=== PATIENT | male | born 1940 | race Caucasian/White ===

== ENCOUNTER 2016-07-23 12:32 | Inpatient (IN) | payer MEDICARE ==
--- NOTE | ~2016-07-23 | HP ---
Unit #: [id number] #: [id number] Patient: DALE PRINCE [id number] [address] [address] [id number] MR#: [id number] NAME: DALE PRINCE. ROOM: Age: 76 Sex: M Admission Date: 07/23/2016 : 1940 Attending Physician: Gosia Longo M.D. Primary Care Physician: No Primary Care Physician HISTORY AND PHYSICAL ADDENDUM The patient is on metformin. He is not sure of the dose. He is also on an antihypertensive medication. Home medications will need to be reviewed and verified. Dictated by Barbara Waggoner/juan c TD: 07/23/2016 16:22 JOB #: [id number] HISTORY AND PHYSICAL X Hillary Frederick MD X HISTORY AND PHYSICAL
--- NOTE | ~2016-07-23 | DS ---
Unit #: [id number] #: [id number] Patient: DALE MCCOLLUM [id number] [address] [place], [place] [address] [id number] MR#: [id number] NAME: DALE MCCOLLUM. ROOM: 240 Age: 76 Sex: M Admission Date: 07/23/2016 : 1940 Discharge Date: 07/26/2016 Attending Physician: Gretchen Schreiber M.D. Primary Care Physician: Dr. Benito Quick DISCHARGE SUMMARY PRINCIPAL DIAGNOSES 1. Sepsis secondary to left lower extremity cellulitis. 2. Onychomycosis. 3. Diabetes mellitus type 2, non-insulin requiring and uncontrolled, with hemoglobin A1C of 8.5. 4. Chronic kidney disease stage 3, with baseline creatinine of approximately 1.3. 5. Hypertension. 6. Hyperlipidemia. 7. Moderate protein malnutrition. 8. Obesity. 9. Venous stasis. CONSULTANTS None. DIAGNOSTIC STUDIES IMAGING: Left lower extremity venous Doppler, which was negative for DVT. CLINICAL HISTORY AND HOSPITAL COURSE Mr. Mccollum is a 76-year-old male who presented to the emergency department with swelling and redness of the left lower extremity. Please refer to H and P for further details. Examination in the emergency department was consistent with cellulitis. The patient had an associated leukocytosis with a white blood cell count of 13.2 and was also found to be tachycardic upon presentation. Blood sugar was also elevated at 270. The patient was subsequently admitted. The patient was placed on empiric Zosyn and vancomycin in regard to his cellulitis. The patient remained afebrile throughout the hospitalization, and white blood cell count on day of discharge had normalized to 8.8. Cellulitis itself was also significantly improved. Physical examination revealed some significant onychomycosis and fungal infection between the toes. Thus, the patient was also placed on clotrimazole cream. I suspect the fungal infection of the toes led subsequently to the cellulitis. We are going to complete empiric antibiotic therapy as an outpatient. This will cover MSSA, MRSA and Pseudomonas, given causative organism was not identified. The patient, as noted above, had significant hyperglycemia, and his hemoglobin A1C confirms that sugars were uncontrolled at home. He did receive diabetic education at home, but I will note he told the associate professor of archaeology, "I think I am doing everything right." I have added Januvia to his home regimen, and this can be monitored by the patient's primary care physician Unit #: [id number] #: [id number] Patient: DALE MCCOLLUM upon followup in a couple months. However, I suspect, perhaps, he needs some underlying insulin therapy, but this is to be decided by his primary care provider. The patient's other chronic conditions remained stable. He will be discharged home on antibiotics today. DISCHARGE CONDITION Stable. DISCHARGE STATUS Discharge to home. DISCHARGE MEDICATIONS 1. Metformin 1,000 mg b.i.d. 2. Januvia 100 mg daily with 1 refill given. 3. Spectazole 1% cream applied topically b.i.d. between all toes for a total of 7 days. 4. Lasix 40 mg daily. 5. Simvastatin 40 mg at bedtime. 6. Lisinopril 10 mg at bedtime. 7. Preston 5/325 mg 1 tablet p.o. q.4 hours p.r.n. pain (number given 20). 8. Glipizide 10 mg p.o. b.i.d. 9. Aspirin 81 mg p.o. daily. 10. Levaquin 750 mg p.o. daily for another 11 days. 11. Bactrim DS 1 tablet p.o. b.i.d. for another 11 days. DISCHARGE INSTRUCTIONS Patient was instructed to follow a heart healthy, constant carb diet. I instructed him to initiate Accu-Cheks at least twice daily at home, one fasting and one 2 hours postprandial, so we can monitor the addition of Januvia and how it affects sugars. He can increase his activity as tolerated. FOLLOW-UP Patient will follow up with his primary care physician, Dr. Benito Quick, upon return to [place] and reevaluate glycemic control at that time. NOTE: Time spent on discharge - 33 minutes. Dictated by... Gretchen Schreiber M.D. MICKY/juan c TD: 07/27/2016 10:45 JOB #: [id number] Unit #: [id number] #: [id number] Patient: DALE MCCOLLUM DISCHARGE SUMMARY X Gretchen Schreiber MD DISCHARGE SUMMARY
--- NOTE | ~2016-07-23 | HP ---
Unit #: [id number] #: [id number] Patient: DALE PRINCE [id number] [facility] [address] [place]. [place], [place] [address] [id number] MR#: [id number] NAME: DALE PRINCE. ROOM: Age: 76 Sex: M Admission Date: 07/23/2016 : 1940 Attending Physician: Gosia Longo M.D. Referring Physician: Self Referral-Refer Use Only Primary Care Physician: No Primary Care Physician HISTORY AND PHYSICAL CHIEF COMPLAINT Left leg swelling, pain. HISTORY OF PRESENT ILLNESS The patient is a 76-year-old male with past medical history of diabetes, hypertension, CHF, who presented to the emergency department for evaluation of the above. The patient states that he has had a four to five day history of increasing redness, swelling and pain involving the left leg. He has had chills and undocumented fever. He states that the pain is similar to when he had cellulitis in the past about two years ago. In the emergency department blood sugar was noted to be 270, white blood cell count 13.2. He was given vancomycin. He is being admitted to [facility] for evaluation and further treatment. PAST MEDICAL HISTORY 1. CHF with unknown ejection fraction. 2. Hypertension. 3. Diabetes. PAST SURGICAL HISTORY 1. Wrist surgery. 2. Hernia repair. 3. Cardiac catheterization, normal per the patient (no records). That was apparently done in [place]. SOCIAL HISTORY The patient lives with his . He lives in [place]. He is here visiting. There is no tobacco or alcohol use. FAMILY HISTORY Family history is notable for his mother having diabetes. ALLERGIES No known allergies. HOME MEDICATIONS There is no medication list on the chart. Home medications will need to be reviewed and verified. REVIEW OF SYSTEMS Unit #: [id number] #: [id number] Patient: DALE PRINCE 10-point review of systems is negative except as indicated in the HPI. The patient does not check his blood sugars at home. DIAGNOSTIC STUDIES LABORATORY: Complete blood count notable for white blood cell count of 13.2. Comprehensive metabolic panel notable for sodium of 129, that corrects to 132 when glucose of 270 is accounted for, BUN and creatinine 35 and 1.2 respectively, albumin is 3.2. PHYSICAL EXAMINATION VITAL SIGNS: Temperature is 97.4. Pulse 97. Respirations 16. Blood pressure 151/82. Oxygen saturation is 96% on room air. GENERAL: The patient is a male who is awake and alert, in no acute distress. HEENT: The head is atraumatic. Mucous membranes are moist. NECK: Neck is supple. Trachea is midline. CARDIOVASCULAR: Regular rate and rhythm. LUNGS: Lungs are clear to auscultation bilaterally with no increased work of breathing. ABDOMEN: Abdomen is soft, nontender, with bowel sounds present in all four quadrants. EXTREMITIES: The left lower extremity just distal to the knee and involving the dorsal aspect of the foot demonstrates erythema, warmth and tenderness to palpation that is near circumferential. He does have some chronic appearing wounds on the posterior aspect of the left leg as well as the anterolateral aspect of the right lower extremity, 2+ dorsalis pedis pulses are present. NEUROLOGIC: The patient is awake and alert. He follows commands. PSYCHIATRIC: Mood and affect are normal. The patient is cooperative. SKIN: Skin of examined areas demonstrates the previously described abnormalities. ASSESSMENT The patient is a 76-year-old male with: 1. Left lower extremity cellulitis. He received vancomycin in the emergency department. 2. Sepsis. 3. Uncontrolled diabetes. 4. Hypertension. 5. Congestive heart failure with unknown ejection fraction. 6. Chronic leg wounds. PLAN 1. Admit to med/surg. 2. Healthy heart consistent carb diet. 3. Normal saline at 75 mL an hour. 4. Blood cultures x2. 5. Left lower extremity venous Doppler to rule out DVT. 6. Vancomycin IV and Zosyn IV pending further workup. 7. STAT lactic acid. 8. Sepsis protocol. 9. Hemoglobin A1C. 10. Low dose sliding scale insulin with Accu-Cheks. 11. P.r.n. morphine. 12. P.r.n. Zofran. 13. P.r.n. Tylenol. 14. Check urinalysis. 15. Wound care consult regarding chronic leg wounds. The patient denies Unit #: [id number] #: [id number] Patient: DALE PRINCE ever being told he had MRSA. 16. Repeat labs in the morning. 17. Additional workup and consultants based on above. Dictated by Hillary Frederick M.D. DAVID/cuong TD: 07/23/2016 16:09 JOB #: [id number] HISTORY AND PHYSICAL X Hillary Frederick MD HISTORY AND PHYSICAL
--- NOTE | ~2016-07-23 | US85 ---
[facility] A Service [facility] RADIOLOGY TEXT RESULTS PATIENT: DALE PRINCE LOCATION: [facility] : 41 UNIT #: [id number] AGE: [address]: Hillary Frederick MD SEX: M ORDER DR: [id number] [place], [place] [address] [id number] MR#: [id number] Acc #: [id number] NAME: DALE PRINCE. : 1940 SEX: M STUDY DATE/TIME: 07/23/2016 16:25 UNIT: [facility] ROOM: 240 STUDY DESCRIPTION: LE Veins Unilat or Ltd Stdy Attending Physician: Hillary Frederick M.D. Ordering Physician: Hillary Frederick M.D. MEDICAL IMAGING REPORT This report is preliminary unless electronic signature is present EXAM Left leg vein Doppler 07/23 INDICATIONS Left leg swelling and pain and swelling for the last 4 days. No trauma. TECHNIQUE Venous ultrasound examination of the left lower extremity was performed using grayscale, spectral Doppler and color flow Doppler imaging. FINDINGS The examination is negative. There is no evidence of left lower extremity deep venous thrombus from the groin to the lower calf. Visualized greater saphenous vein is also patent. IMPRESSION Negative examination. No evidence of left lower extremity deep venous thrombosis. Dictated by... Darron Bañuelos Jr., M.D. THIS IS AN ELECTRONICALLY VERIFIED REPORT Darron Bañuelos Jr., M.D. at 07/24/2016 6:32 AM JOSEFK/maría TD: 07/23/2016 22:18 JOB #: [id number] MEDICAL IMAGING REPORT [facility] RADIOLOGY TEXT RESULTS PATIENT: DALE PRINCE LOCATION: [facility] : 41 UNIT #: [id number] AGE: [address]: Hillary Frederick MD SEX: M ORDER DR: COPY
--- NOTE | ~2016-07-23 | A ---
[facility] Nutrition Therapy DATE: 07/25/16 Patient: DALE PRINCE Physician: ALEXSANDRA Address: [address] Room/Bed: [address] [place] [address], Zip: [place] [address] Admit Date: 07/23/16 Date of : [birth year] Height: 5 3 Weight: 211 96 NUTRITIONAL ASSESSMENT: REASON: CONSULT RE: DIET EDUCATION PT IS 76 Y.O. MALE ADMITTED FOR (L) LEG SWELLING HT: 5'3", WT: 200# (91 KG), BMI: 35.4 RD PROVIDED WRITTEN AND VERBAL CC DIET EDUCATION. RD PROVIDED LIST OF FOODS TO AVOID/LIMIT AND FOODS TO EAT MORE OFTEN. RD ALSO EMPHASIZED CONSISTENT MEAL SCHEDULE AND BALANCED MEALS WELL LIMIT SUGAR-SWEETENED BEVERAGES. PT REPORTS WATCHING THE "WHITE" STUFF (HIS MD ADVISED HIM). PT REPORTS CONSUMING 3 MEALS DAILY + UNSWEET ICED TEA AND MILK DAILY. PT STATES "I REALLY DON'T FEEL LIKE I NEED TO WORK ON ANYTHING". PT VERBALIZED UNDERSTANDING OF THE TOPIC/REPORTED NO DIET QUESTIONS AT THIS TIME. RD TO REMAIN AVAILABLE. RECOMMENDATIONS: 1. ENCOURAGE COMPLIANCE OF CURRENT DIET ORDER=CC+HH RD WILL F/U PER PROTOCOL Respectfully, ADI ANDERSON MS, RD, LD [facility] cc: client file
[2016-07-23 11:59] LABS: BASOPHIL% 0.3 % (0-2.5); EOSINOPHIL% 0.1 % (0.0-7.0); HEMATOCRIT 47.3 % (38.0-50.0); HEMOGLOBIN 15.4 gm/dL (13.0-16.0); LYMPHOCYTE# 1.1 X10e3 (1.0-3.5); LYMPHOCYTE% 8.3 % (17.0-45.0); MEAN CELL VOLUME 87.1 FL (83-96); MEAN CORPUSCULAR HEMOGLOBIN 28.4 PG (28-34); MEAN CORPUSCULAR HGB CONC 32.6 g/dL (30-36); MONOCYTE% 7.9 % (3.0-12.0); NEUTROPHIL% 83.4 % (40-75); PLATELET COUNT 230 X10e3 (140-420); RED BLOOD COUNT 5.43 X10e (3.90-5.60); RED CELL DISTRIBUTION WIDTH 13.8 % (11.0-15.5); WHITE BLOOD COUNT 13.2 X10e3 (4.0-10.5)
[2016-07-23 12:07] LABS: DIFF IND YES
[2016-07-23 12:10] LABS: ALBUMIN SERUM 3.2 g/dL (3.5-5.0); ALKALINE PHOSPHATASE 69 U/L (32-92); ALT (SGPT) 20 U/L (10-40); AST (SGOT) 18 U/L (10-42); BILIRUBIN, DIRECT 0.2 mg/dL (0.0-0.2); BILIRUBIN,INDIRECT 0.8 mg/dL (0.0-0.9); BLOOD UREA NITROGEN 35 mg/dL (9-23); BUN/CREATININE RATIO 29.16; CALCIUM SERUM 8.4 mg/dL (8.4-10.2); CARBON DIOXIDE 25 mmol/L (22-31); CHLORIDE 95 mmol/L (100-111); CREATININE SERUM 1.2 mg/dL (0.6-1.4); GLOM FILT RATE Estimated ABOVE60 mL/min (>60); GLUCOSE FASTING 270 mg/dL (70-110); PROTEIN TOTAL SERUM 7.1 g/dL (6.0-8.3); SODIUM 129 mmol/L (135-145)
[2016-07-23 13:00] LABS: PLATELET ESTIMATE NORMAL (NORMAL)
[2016-07-24 03:52] LABS: URINE APPEARANCE CLEAR; URINE BILIRUBIN NEG (NEG); URINE BLOOD NEG (NEG); URINE COLOR YELLOW; URINE GLUCOSE 500 MG/DL (NEG); URINE KETONE NEG (NEG); URINE LEUKOCYTE ESTERASE NEG (NEG); URINE NITRATE NEG (NEG); URINE PROTEIN NEG (NEG); URINE SPECIFIC GRAVITY 1.013 (1.003-1.035)
[2016-07-24] MEDS ORDERED: FUROSEMIDE40 MG PO (04:24)
[2016-07-24] MEDS ORDERED: GLIPIZIDE10 MG PO (04:25)
[2016-07-24] MEDS ORDERED: IBUPROFEN800 MG PO (04:27)
[2016-07-24] MEDS ORDERED: LISINOPRIL10 MG PO (04:28)
[2016-07-24] MEDS ORDERED: METFORMIN HCL1000 M1 PO (04:30)
[2016-07-24] MEDS ORDERED: NEO/POLYMYXIN/H10 M1 AU (04:32)
[2016-07-24] MEDS ORDERED: SIMVASTATIN40 MG PO (04:33)
[2016-07-24 05:39] LABS: MEAN CELL VOLUME 87.2 FL (83-96); MEAN CORPUSCULAR HEMOGLOBIN 28.5 PG (28-34); MEAN CORPUSCULAR HGB CONC 32.7 g/dL (30-36); MEAN PLATELET VOLUME 8.7 FL (6.5-11.5); RED BLOOD COUNT 4.93 X10e (3.90-5.60); RED CELL DISTRIBUTION WIDTH 13.5 % (11.0-15.5)
[2016-07-24 06:33] LABS: ALBUMIN SERUM 2.8 g/dL (3.5-5.0); BILIRUBIN,TOTAL 0.7 mg/dL (0.2-2.0); BUN/CREATININE RATIO 26.92; CALCIUM SERUM 8.5 mg/dL (8.4-10.2); CREATININE SERUM 1.3 mg/dL (0.6-1.4); GLOM FILT RATE Estimated 57.2 mL/min (>60); PROTEIN TOTAL SERUM 6.5 g/dL (6.0-8.3)
[2016-07-25 05:20] LABS: HEMATOCRIT 40.4 % (38.0-50.0); HEMOGLOBIN 13.2 gm/dL (13.0-16.0); MEAN CELL VOLUME 87.5 FL (83-96); MEAN CORPUSCULAR HEMOGLOBIN 28.7 PG (28-34); MEAN CORPUSCULAR HGB CONC 32.8 g/dL (30-36); MEAN PLATELET VOLUME 8.2 FL (6.5-11.5); RED BLOOD COUNT 4.61 X10e (3.90-5.60); RED CELL DISTRIBUTION WIDTH 13.7 % (11.0-15.5); WHITE BLOOD COUNT 10.6 X10e3 (4.0-10.5)
[2016-07-25 06:53] LABS: BUN/CREATININE RATIO 20.76; CALCIUM SERUM 8.5 mg/dL (8.4-10.2); CREATININE SERUM 1.3 mg/dL (0.6-1.4); GLOM FILT RATE Estimated 57.2 mL/min (>60); POTASSIUM 4.4 mmol/L (3.5-5.1)
[2016-07-26 06:30] LABS: HEMATOCRIT 41.5 % (38.0-50.0); HEMOGLOBIN 13.5 gm/dL (13.0-16.0); MEAN CELL VOLUME 87.1 FL (83-96); MEAN CORPUSCULAR HEMOGLOBIN 28.4 PG (28-34); MEAN CORPUSCULAR HGB CONC 32.6 g/dL (30-36); MEAN PLATELET VOLUME 8.1 FL (6.5-11.5); RED BLOOD COUNT 4.76 X10e (3.90-5.60); RED CELL DISTRIBUTION WIDTH 13.4 % (11.0-15.5); WHITE BLOOD COUNT 8.8 X10e3 (4.0-10.5)
[2016-07-26 06:59] LABS: BLOOD UREA NITROGEN 24 mg/dL (9-23); BUN/CREATININE RATIO 21.81; CALCIUM SERUM 8.6 mg/dL (8.4-10.2); CARBON DIOXIDE 28 mmol/L (22-31); CHLORIDE 100 mmol/L (100-111); CREATININE SERUM 1.1 mg/dL (0.6-1.4); GLOM FILT RATE Estimated ABOVE60 mL/min (>60); GLUCOSE FASTING 250 mg/dL (70-110); POTASSIUM 4.8 mmol/L (3.5-5.1); SODIUM 133 mmol/L (135-145)
[2016-07-26] MEDS ORDERED: JANUVIA PO (11:39)
[2016-07-26] MEDS ORDERED: SPECTAZOLE15 GM TOP (11:40)
[2016-07-26] MEDS ORDERED: BACTRIM DS TABL1 TA1 PO (11:41)
[2016-07-26] MEDS ORDERED: LEVAQUIN750 MG PO (11:41)
[2016-07-26] MEDS ORDERED: BAYER CHEWABLE81 MG PO (11:42)
[2016-07-26] MEDS ORDERED: HYDROCODON-ACE1 EAC7 PO (11:42)
== END 2016-07-26 12:51 | disposition home or self-care (01) | DRG 872 ==
LOC: CED 12:32 → CEDOF 15:40 → C2A 18:32
PROVIDERS: Emergency Medicine; Family Medicine; Internal Medicine
DX: A41.9 Sepsis, unspecified organism (principal); E44.0 Moderate protein-calorie malnutrition; I13.0 Hypertensive heart and chronic kidney disease with heart failure and stage 1 through stage 4 chronic kidney disease, or unspecified chronic kidney disease; E11.22 Type 2 diabetes mellitus with diabetic chronic kidney disease; E11.65 Type 2 diabetes mellitus with hyperglycemia; L03.116 Cellulitis of left lower limb; M79.89 Other specified soft tissue disorders; B35.1 Tinea unguium; Z79.84 Long term (current) use of oral hypoglycemic drugs; N18.3 Chronic kidney disease, stage 3 (moderate); Z68.35 Body mass index [BMI] 35.0-35.9, adult; E66.9 Obesity, unspecified; I87.8 Other specified disorders of veins; E78.5 Hyperlipidemia, unspecified
CPT/HCPCS: 36415; 51701; 80048; 80053; 80076; 80202; 81003; 82947; 83036; 83605; 85025; 85027; 87040; 87086; 93971; 96365; 96366; 96375; 99285; J1815; J2270; J2405; J2543; J3370